=== PATIENT | female | born 1995 ===

== ENCOUNTER → 2021-05-18 | Outpatient (CLI) | payer OTHER | LOC: COL.RAD 12:00 | DX: M54.2 Cervicalgia (principal); R51.9 Headache, unspecified | CPT/HCPCS: A9585 ==

== ENCOUNTER → 2021-06-12 | Outpatient (CLI) | payer OTHER | LOC: COL.PUL 12:31 | DX: R06.02 Shortness of breath (principal) | CPT/HCPCS: J7674 ==

== ENCOUNTER → 2021-06-20 | Outpatient (CLI) | payer OTHER ==
[2021-06-22 04:58] LABS: ALTERNARIA TEN ALLERGN IGE CNT <0.10 kU/L (()); ASPERGILLUS FUM ALLR IGE COUNT <0.10 kU/L (()); BOX ELDER/MAPL ALLERGN IGE CNT 0.22 kU/L (()); CAT DANDER ALLERGEN IGE COUNT 1.11 kU/L (()); CLADOSPORIUM ALLERGN IGE COUNT <0.10 kU/L (()); COCKROACH ALLERGEN CLASS <0.10 kU/L (()); COTTONWOOD ALLERGEN IGE COUNT <0.10 kU/L (()); DOG DANDER ALLERGEN IGE COUNT 1.31 kU/L (()); DUST MITES IGE (D.F.) COUNT <0.10 kU/L (()); DUST MT D.P. ALLERGN IGE COUNT <0.10 kU/L (()); ELM ALLERGEN IGE COUNT <0.10 kU/L (()); FIREBUSH ALLERGEN IGE COUNT <0.10 kU/L (()); OAK ALLERGEN IGE COUNT <0.10 kU/L (()); ROUGH MRSH ELDR ALRG IGE COUNT <0.10 kU/L (()); RUSSIAN THIS ALLERGN IGE COUNT <0.10 kU/L (()); SHORT RAGWED ALLERGN IGE COUNT 0.13 kU/L (())
== END ==
LOC: COL.LAB 15:28
PROVIDERS: Physician Assistant
DX: J45.909 Unspecified asthma, uncomplicated (principal)